=== PATIENT | male | born 1980 | race Caucasian/White ===

== ENCOUNTER → 2017-07-11 | Outpatient (CLI) | payer OTHER ==
[2017-07-11 19:13] LABS: BASOPHILS ABSOLUTE AUTO 0.05 K/mm3 (0.00-0.23); BASOPHILS PERCENT AUTO 1 % (0-2); EOSINOPHILS ABSOLUTE AUTO 0.11 K/mm3 (0.00-0.68); EOSINOPHILS PERCENT AUTO 1 % (0-6); Hemoglobin 13.7 g/dL (13.5-17.5); IMMATURE GRAN ABSOLUTE AUTO 0.01 K/mm3 (0.00-0.10); IMMATURE GRAN PERCENT AUTO 0 % (0-1); LYMPHOCYTES ABSOLUTE AUTO 2.41 K/mm3 (0.84-5.20); LYMPHOCYTES PERCENT AUTO 25 % (21-46); MONOCYTES ABSOLUTE AUTO 0.59 K/mm3 (0.16-1.47); MONOCYTES PERCENT AUTO 6 % (4-13); Mean Corpuscular HGB 29.7 pg (26.0-34.0); Mean Corpuscular HGB Conc 34.3 g/dL (31.5-36.5); Mean Corpuscular Volume 87 fL (80-100); Mean Platelet Volume 9.6 fL (9.1-12.4); NEUTROPHILS PERCENT AUTO 67 % (41-73); Platelet Count 327 K/mm3 (150-400); RDW Coefficient Variation 12.8 % (11.7-14.2); RDW Standard Deviation 40.1 fL (35.1-46.3); Red Blood Cell Count 4.62 M/mm3 (4.30-5.90); White Blood Cell Count 9.57 K/mm3 (4.00-11.30)
[2017-07-11 19:53] LABS: Anion Gap 8 mmol/L (6-16); Blood Urea Nitrogen 10 mg/dL (8-24); Bun/Creatinine Ratio 11.8 (12.0-20.0); CO2, Blood 25 mmol/L (21-32); Chloride, Blood 107 mmol/L (98-108); Creatinine, Blood 0.84 mg/dL (0.60-1.20); Glomerular Filtration Rate >60 (60-); Glucose, Blood 108 mg/dL (70-99); Sodium, Blood 140 mmol/L (136-145)
[2017-07-11 19:56] LABS: Thyroid Stimulating Hormone 0.915 uIU/mL (0.360-4.800)
== END | disposition home or self-care (01) ==
LOC: LAB EV 19:09 → LAB SHORT 19:09
PROVIDERS: Physician Assistant Surgical
DX: R53.83 Other fatigue (principal)
CPT/HCPCS: 80048; 84443; 85025

== ENCOUNTER → 2020-12-23 | Outpatient (CLI) | payer OTHER | END | disposition home or self-care (01) | LOC: LAB SHORT 19:28 → LAB 19:28 | DX: N39.0 Urinary tract infection, site not specified (principal) | CPT/HCPCS: 87077; 87086; 87186 ==

== ENCOUNTER 2025-01-27 08:43 | Day surgery (SDC) | payer OTHER ==
[~2025-01-27] VITALS: Ht 177.8 cm; Wt 96.6 kg
[2025-01-27] MEDS ORDERED: CeFAZolin Sodium 2,000 MG VIAL ONE (09:10)
[2025-01-27] MEDS ORDERED: ESCITALOPRAM (09:14)
[2025-01-27] MEDS ORDERED: MOUNJARO2.5 MG/0.5 (09:15)
[2025-01-27] MEDS ORDERED: FentaNYL Citrate 50 MCG/ML 2 ML Injection ONE (09:49)
[2025-01-27] MEDS ORDERED: Midazolam HCl 1MG / ML 2ML Vial ONE (09:50)
[2025-01-27] MEDS ORDERED: Triamcinolone Inj Susp 40 MG / ML 1ML Vial ONE (09:51)
[2025-01-27] MEDS ORDERED: Lidocaine 2% Jelly Uro-Jet ONE (09:52)
[2025-01-27] MEDS ORDERED: HYDROcodone 5-APAP 325 TAB ONE (11:37)
--- NOTE | 2025-01-27 11:39 | NUR ---
01/27/25 1139 Tata Galindo PT PLEASANT AND COOPERATIVE WITH CARE PROVIDED. IS AT SIDE OF RECLINER. PT C/O PAIN A 10. PT HAS AN ORDER FOR NORCO 5/325MG. PT TOLERATING SNACK WELL AND ALSO FLUIDS.
[2025-01-27 11:46] VITALS: BP 138/83
== END 2025-01-27 12:35 | disposition home or self-care (01) ==
LOC: ORSCSDS 08:43
PROVIDERS: Urology
PROC: 0T7D8ZZ Dilation of Urethra, Via Natural or Artificial Opening Endoscopic (ICD-10-PCS; principal; 2025-01-27 10:15)
DX: N35.812 Other bulbous urethral stricture, male (principal); E78.5 Hyperlipidemia, unspecified; E66.9 Obesity, unspecified; Z68.30 Body mass index [BMI] 30.0-30.9, adult; Z79.85 Long-term (current) use of injectable non-insulin antidiabetic drugs; Z79.899 Other long term (current) drug therapy; F41.8 Other specified anxiety disorders
CPT/HCPCS: A4340; A9270; C1769; J0690; J2250; J2704; J3010; J3301